=== PATIENT | female | born 1935 | race Hispanic/Latino ===

== ENCOUNTER 2017-02-07 11:25 | Outpatient (CLI) | payer MEDICARE, OTHER | END 2017-02-07 11:26 | disposition home or self-care (01) | LOC: MWLC RAD 11:25 | PROVIDERS: ATTEND Internal Medicine Geriatric Medicine | DX: Z53.9 Procedure and treatment not carried out, unspecified reason (principal) ==

== ENCOUNTER 2017-08-08 15:40 | Emergency (ER) | payer MEDICARE ==
[2017-08-08 16:34] LABS: #Basophils 0.1 thou/uL (0.0-0.2); #Eosinphils 0.3 thou/uL (0.0-0.7); #Monocytes 0.6 thou/uL (0.11-0.59); #Neutrophils 4.3 thou/uL (1.40-6.50); %Basophils 1.1 % (0.0-1.0); %Monocytes 8.5 % (0.0-10.0); %Neutrophils 59.3 % (42.0-75.0); Hemoglobin 11.6 g/dL (12.0-16.0); Mean Corpuscular HGB CONC 33.8 g/dL (32.0-36.0); Mean Corpuscular Hemoglobin 32.3 pg (27.0-31.0); Mean Corpuscular Volume 95.7 fl (81.0-99.0); Mean Platelet Volume 8.9 fL (7.4-10.4); Platelet Count 140 thou/uL (130-400); RBC Distribution Width 10.9 % (11.5-14.5); Red Blood Cell (RBC) Count 3.61 mill/uL (4.20-5.40); White Blood Cell (WBC) Count 7.3 thou/uL (4.8-10.8)
[2017-08-08 16:51] LABS: ALT (SGPT) 31 U/L (8-55); AST (SGOT) 23 U/L (5-34); Alkaline Phosphatase 123 U/L (40-150); Anion Gap 16 mmol/L (10-20); BUN (Urea Nitrogen) 30 mg/dL (9.8-20.1); Bilirubin, Total 0.6 mg/dL (0.2-1.2); Calc. Creatinine Clearance 0 mL/min (70-130); Calcium 9.6 mg/dL (7.8-10.44); Carbon Dioxide 25 mmol/L (23-31); Chloride 102 mmol/L (98-107); Estimated GFR-MDRD 29; Globulin 3.5 g/dL (2.4-3.5); Glucose 270 mg/dL (83-110); Potassium 4.7 mmol/L (3.5-5.1); Protein, Total 7.5 g/dL (6.0-8.3); Sodium 138 mmol/L (136-145)
[2017-08-08 17:06] LABS: Bilirubin Negative (Negative); Blood, Urine Trace (Negative); Clarity Cloudy (Clear); Glucose, Urine (Dipstick) 500 mg/dL (Negative); Leukocyte Large (Negative); Nitrite Positive (Negative); Protein, Urine (Dipstick) 30 mg/dL (Neg-Trace); Urobilinogen 0.2 mg/dL (0.2-1.0); pH, Urine 5.5 (5.0-9.0)
--- NOTE | 2017-08-08 17:11 | RAD ---
PA CHEST AND RIGHT RIB SERIES: 08/08/17 HISTORY: Trauma. Right chest injury, right chest pain. FINDINGS/IMPRESSION: There are changes of median sternotomy. The heart size is normal. The aorta is tortuous. The lungs ar e well expanded without confluent areas of consolidation, pneumothoraces or pleural effusions. No rig ht sided rib fracture is seen. POS: [facility]
[2017-08-08 17:15] LABS: Bacteria/HPF 4+ HPF (None Seen); RBC/HPF 0-3 HPF (0-3); Squamous Epithelial 0-3 HPF (0-3)
--- NOTE | 2017-08-08 17:27 | CT ---
CT OF THE BRAIN WITHOUT IV CONTRAST: 08/08/17 INDICATION: History of dizziness; patient had history of dysuria on Friday accompanied by dizziness for the pa st 1.5 weeks. Patient reports that she feels like she is spinning. She also has a history of prior UT Is. COMPARISON: Prior CT of the brain dated 11/02/16. FINDINGS: There is moderate chronic small vessel white matter ischemic change that appears stable to the prior exam. There is a remote appearing lacunar infarct involving the right caudate head. Septum pellucidum and third ventricle are midline. Skull and extracranial soft tissues appear within normal limits. Ma stoid air cells appear clear. There are stable chronic appearing calcifications within the right orbi t. IMPRESSION: No acute intracranial abnormality. 1. POS: [facility]
== END 2017-08-08 17:38 | disposition home or self-care (01) ==
LOC: SCSER 15:40
DX: N30.00 Acute cystitis without hematuria (principal); H81.10 Benign paroxysmal vertigo, unspecified ear; I25.10 Atherosclerotic heart disease of native coronary artery without angina pectoris; E03.9 Hypothyroidism, unspecified; K21.9 Gastro-esophageal reflux disease without esophagitis; E78.5 Hyperlipidemia, unspecified; F03.90 Unspecified dementia, unspecified severity, without behavioral disturbance, psychotic disturbance, mood disturbance, and anxiety; I12.9 Hypertensive chronic kidney disease with stage 1 through stage 4 chronic kidney disease, or unspecified chronic kidney disease; E11.22 Type 2 diabetes mellitus with diabetic chronic kidney disease; N18.3 Chronic kidney disease, stage 3 (moderate); F41.9 Anxiety disorder, unspecified; F32.9 Major depressive disorder, single episode, unspecified; Z79.899 Other long term (current) drug therapy; Z79.82 Long term (current) use of aspirin
CPT/HCPCS: 36415; 70450; 80053; 81003; 81015; 85025; 87077; 87086; 87186

== ENCOUNTER 2017-10-28 14:37 | Outpatient (CLI) | payer MEDICARE | END 2017-10-28 14:38 | disposition home or self-care (01) | LOC: BICULT 14:37 | PROVIDERS: ATTEND Internal Medicine Geriatric Medicine | DX: N39.0 Urinary tract infection, site not specified (principal); N18.9 Chronic kidney disease, unspecified | CPT/HCPCS: 76770 ==

== ENCOUNTER 2018-02-14 00:01 | Emergency (ER) | payer MEDICARE ==
[2018-02-14] MEDS ORDERED: Lidocaine 1% w/Epinephrine 1:100K 20 ML VIAL ONE (00:52)
[2018-02-14] MEDS ORDERED: Bacitracin Zinc 1 Packet ONE (01:08)
[2018-02-14] MEDS ORDERED: Acetaminophen 500 MG TAB ONE (01:29)
--- NOTE | 2018-02-14 09:12 | RAD ---
RIGHT KNEE 4 VIEWS: HISTORY: Injury, right knee pain. FINDINGS: No acute fracture or dislocation is identified. There is fullness in the suprapatellar pouch, suspic ious for joint effusion. Vascular calcifications are present. POS: [facility]
--- NOTE | 2018-02-14 09:24 | CT ---
PRELIMINARY REPORT/[facility]ERGENT[facility] AFTER-HOURS PROCEDURE CT Head Without Intravenous Contrast EXAM DATE/TIME: 02/14/2018 12:36 AM CLINICAL HISTORY: 82 years old, female; Injury or trauma; Fall; Injury details: Mechanical fall while walking. Family a nd patient deny loc. Family notes bleeding to head. TECHNIQUE: Axial computed tomography images of the head/brain without intravenous contrast. COMPARISON: No prior studies available for comparison at time of interpretation. FINDINGS: Brain: Volume loss and chronic small vessel ischemic change. Old lacunar infarction(s). No brain estrella a. No intracranial hemorrhage. Ventricles: Normal. No ventriculomegaly. Bones/joints: Normal. No acute fracture. Sinuses: Normal as visualized. No acute sinusitis. Mastoid air cells: Normal as visualized. No mastoid effusion. Orbits: Right ocular homogeneous hyperdensity may signify postoperative change or prosthesis or may s ignify intraocular hemorrhage, incompletely visualized. Soft tissues: Small right parietal scalp hematoma. IMPRESSION: No acute brain findings. Thank you for allowing us to participate in the care of your patient. Dictated and Authenticated by: Moris Sam MD 02/14/2018 1:02 AM Central Time ([place] & [place]) FINAL REPORT CT BRAIN WITHOUT CONTRAST: I agree with the preliminary report given by Dr. Moris Sam of [facility] [employer] [facility]. Comparison is made with arley dangelo of 08/08/17. POS: [facility]
--- NOTE | 2018-02-14 09:26 | CT ---
PRELIMINARY REPORT/[facility]/EMERGENTY AFTER-HOURS PROCEDURE CT Cervical Spine Without Intravenous Contrast EXAM DATE/TIME: 02/14/2018 12:38 AM CLINICAL HISTORY: 82 years old, female; Injury or trauma; Fall; Initial encounter; Blunt trauma; Injury details: Mechan ical fall while walking. Family and patient deny loc. Family notes bleeding to head. TECHNIQUE: Axial computed tomography images of the cervical spine without intravenous contrast. Coronal and sagittal reformatted images were created and reviewed. COMPARISON: No relevant prior studies available. FINDINGS: Vertebrae: No acute fracture. Normal alignment. Discs/Spinal canal/Neural foramina: No spinal stenosis. No neural foraminal narrowing. Soft tissues: Unremarkable. Lung apices: Normal. IMPRESSION: No acute findings. Thank you for allowing us to participate in the care of your patient. Dictated and Authenticated by: Moris Sam MD 02/14/2018 1:04 AM Central Time ([place] & [place]) FINAL REPORT CT CERVICAL SPINE WITHOUT CONTRAST: I agree with the preliminary report given by Dr. Moris Sam of [facility]. Degenerative changes are stable since previous exam of 11/02/16. POS: [facility]
== END 2018-02-14 01:34 | disposition home or self-care (01) ==
LOC: SCSER 00:01
DX: S01.01XA Laceration without foreign body of scalp, initial encounter (principal); S50.01XA Contusion of right elbow, initial encounter; S80.01XA Contusion of right knee, initial encounter; E03.9 Hypothyroidism, unspecified; I25.10 Atherosclerotic heart disease of native coronary artery without angina pectoris; K21.9 Gastro-esophageal reflux disease without esophagitis; I12.9 Hypertensive chronic kidney disease with stage 1 through stage 4 chronic kidney disease, or unspecified chronic kidney disease; N18.3 Chronic kidney disease, stage 3 (moderate); E11.22 Type 2 diabetes mellitus with diabetic chronic kidney disease; F41.9 Anxiety disorder, unspecified; F32.9 Major depressive disorder, single episode, unspecified; W17.89XA Other fall from one level to another, initial encounter
CPT/HCPCS: 12001; 36416; 70450; 72125; J2001

== ENCOUNTER 2018-06-27 21:45 | Observation (INO) | payer MEDICARE ==
[2018-06-27] MEDS ORDERED: Nitroglycerin 2% Ointment 1 INCH/1 GM Packet ONE (22:07)
[2018-06-27] MEDS ORDERED: Nitroglycerin 0.4 MG TAB (25 Tab Bottle) ONE (22:07)
[2018-06-27] MEDS ORDERED: cefTRIAXone\\ROCEPHIN 1 GM VIAL ONE (22:52)
[2018-06-27] MEDS ORDERED: Sodium Chloride 0.9% 100 ML ONE (22:52)
[2018-06-27 23:02] LABS: ALT (SGPT) 48 U/L (8-55); AST (SGOT) 47 U/L (5-34); Albumin 3.9 g/dL (3.4-4.8); Alkaline Phosphatase 133 U/L (40-150); Anion Gap 14 mmol/L (10-20); BUN (Urea Nitrogen) 32 mg/dL (9.8-20.1); Bilirubin, Total 0.3 mg/dL (0.2-1.2); CK (CPK) 68 U/L (29-168); Calc. Creatinine Clearance 0 mL/min (70-130); Calcium 9.5 mg/dL (7.8-10.44); Carbon Dioxide 24 mmol/L (23-31); Chloride 106 mmol/L (98-107); Estimated GFR-MDRD 38; Globulin 3.6 g/dL (2.4-3.5); Potassium 5.3 mmol/L (3.5-5.1); Protein, Total 7.5 g/dL (6.0-8.3); Sodium 139 mmol/L (136-145)
[2018-06-27 23:03] LABS: Glucose 179 mg/dL (83-110)
[2018-06-27 23:05] LABS: Bacteria/HPF 4+ HPF (None Seen); Bilirubin Negative (Negative); Blood, Urine Trace (Negative); Clarity Cloudy (Clear); Glucose, Urine (Dipstick) 100 mg/dL (Negative); Leukocyte Moderate (Negative); Nitrite Negative (Negative); Protein, Urine (Dipstick) Negative (Neg-Trace); RBC/HPF 0-3 HPF (0-3); Specific Gravity, Urine 1.015 (1.005-1.030); Squamous Epithelial 0-3 HPF (0-3); Transitional Epithelial 0-3 HPF (0-3); Urobilinogen 0.2 mg/dL (0.2-1.0)
[2018-06-27 23:06] LABS: Crystals/HPF None Seen HPF (Negative); Hyaline Casts/LPF NONE SEEN LPF (0-3 Hyaline)
[2018-06-27 23:08] LABS: #Basophils 0.1 thou/uL (0.0-0.2); #Eosinphils 0.3 thou/uL (0.0-0.7); #Lymphocytes 2.2 thou/uL (1.20-3.40); #Monocytes 0.6 thou/uL (0.11-0.59); #Neutrophils 3.8 thou/uL (1.40-6.50); %Basophils 1.4 % (0.0-1.0); %Eosinophils 4.4 % (0.0-10.0); %Lymphocytes 31.2 % (21.0-51.0); %Monocytes 8.7 % (0.0-10.0); %Neutrophils 54.2 % (42.0-75.0); Mean Corpuscular Hemoglobin 31.6 pg (27.0-31.0); Mean Corpuscular Volume 95.7 fL (78.0-98.0); Platelet Count 130 thou/uL (130-400); RBC Distribution Width 11.5 % (11.5-14.5); Red Blood Cell (RBC) Count 3.49 mill/uL (4.20-5.40); White Blood Cell (WBC) Count 6.9 thou/uL (4.8-10.8)
[2018-06-27] MEDS ORDERED: hydrALAZINE 20 MG/ML VIAL ONE (23:27)
[2018-06-28] MEDS ORDERED: Acetaminophen 325 MG TAB PO PRN (02:03)
[2018-06-28 02:09] LABS: Troponin I Less than 0.010 ng/mL (< 0.028)
--- NOTE | 2018-06-28 04:50 | HP ---
CHIEF COMPLAINT: Hypertension and dysuria. HISTORY OF PRESENT ILLNESS: The patient is a very pleasant 83-year-old female with a history of hypothyroidism, hypertension, who presented to the hospital for dysuria and was found to have an elevated blood pressure. The patient's daughter in-law who patient lives with, stated that the patient has been acting strange for the past couple of days. Stated initially that she is having some burning when she urinates. At this time, the patient's grandson bought the patient some Azo over the counter and the patient stated that she was feeling well. However, according to the [id number], she has been acting a little odd and strange. At this time, her blood sugar was checked and it was in the 300s. The patient's blood sugars are never so high in the 300s. Also, the patient has been complaining of some headache on her backside. At this time, her blood pressure was checked. Her blood pressure was very high in the 200 systolic over 100 diastolic. At this time, the patient was brought into the hospital for further evaluation. The patient currently denies any headaches, any nausea, vomiting, any diarrhea, any chest pain or chest pressure. All the history is obtained from the patient's family. PAST MEDICAL HISTORY: The patient has a history of: 1. History of hypertension. 2. History of mild early stage dementia. 3. High cholesterol. 4. Hypothyroidism. 5. Diabetes. PAST SURGICAL HISTORY: She has had a CABG. She has also had some eye surgery and appendectomy. SOCIAL HISTORY: She denies any alcohol use, drug use, or smoking history. She is a full code. ALLERGIES: SHE IS ALLERGIC TO SULFA. MEDICATIONS: 1. Levemir 15 units subcu daily. 2. Levothyroxine 75 mcg daily. 3. Glipizide 10 mg daily. 4. Losartan 25 mg daily. 5. Omeprazole 20 mg daily. 6. Atorvastatin 40 mg daily. 7. Paroxetine 10 mg daily. 8. Latanoprost one drop daily. 9. Aspirin 81 mg daily. PHYSICAL EXAMINATION: VITAL SIGNS: Temperature of 98.8. She is 100% on room air, respirations 18, pulse 71, blood pressure initially was 220/100. GENERAL: She is awake, alert, and oriented x3. Does not appear in distress. HEENT: Normocephalic, atraumatic. No lymphadenopathy noted. CV: S1 and S2 present. No murmurs, rubs, or gallops. LUNGS: Clear to auscultation. No rhonchi or wheezes noted. ABDOMEN: Soft and nontender. Bowel sounds present x2. No hepatomegaly or splenomegaly noted. EXTREMITIES: No edema. Pedal pulses are present x2. NEUROVASCULAR: No focal deficits noted. SKIN: No cuts, lesions, or bruises noted. FAMILY HISTORY: The patient has no history of heart disease, but does have history of diabetes in the family. LABORATORY DATA: Laboratory results were as of the following, WBCs of 6.9, hemoglobin of 11.0, hematocrit of 33.4, platelets of 130. Chemistry; sodium of 139, potassium of 5.3, BUN of 32, creatinine 1.32, sugar of 179. Troponin x2 were negative. AST is mildly elevated at 47. The patient did have a UA, which indicated that she did have some moderate leukocytes and greater than 50 wbc's. ASSESSMENT AND PLAN: The patient is a very pleasant 83-year-old female who presents to the hospital with multiple complaints. 1. Hypertensive urgency. The patient's blood pressure in the ER was noted to be in the systolic 200s and she has been having some headaches. At this time, she was given some nitroglycerin and hydralazine and her blood pressure has been in the 114s/70s in the unit. We will continue her home medications for now and keep an eye on her blood pressure. 2. Urinary tract infection. The patient's previous cultures have shown Klebsiella oxytoca and also Escherichia coli. We will start the patient on some ceftriaxone and continue to monitor. I have requested the culture of the urine to be sent. 3. Diabetes. We will start the patient on her home medications and continue to monitor. 4. Deep vein thrombosis prophylaxis. We will put the patient on some subcu heparin. 5. Hyperlipidemia. We will continue her home medications. Job ID: [id number]
[2018-06-28 05:10] LABS: #Eosinphils 0.4 thou/uL (0.0-0.7); #Lymphocytes 2.1 thou/uL (1.20-3.40); #Monocytes 0.6 thou/uL (0.11-0.59); #Neutrophils 3.4 thou/uL (1.40-6.50); %Basophils 0.4 % (0.0-1.0); %Eosinophils 5.9 % (0.0-10.0); %Lymphocytes 32.8 % (21.0-51.0); %Monocytes 9.1 % (0.0-10.0); %Neutrophils 51.8 % (42.0-75.0); Hemoglobin 10.5 g/dL (12.0-16.0); Mean Corpuscular HGB CONC 33.7 g/dL (32.0-36.0); Mean Corpuscular Hemoglobin 33.1 pg (27.0-31.0); Mean Corpuscular Volume 98.1 fL (78.0-98.0); Mean Platelet Volume 8.7 fL (7.4-10.4); Platelet Count 134 thou/uL (130-400); RBC Distribution Width 12.1 % (11.5-14.5); Red Blood Cell (RBC) Count 3.18 mill/uL (4.20-5.40); White Blood Cell (WBC) Count 6.5 thou/uL (4.8-10.8)
[2018-06-28 05:21] LABS: Anion Gap 8 mmol/L (10-20); BUN (Urea Nitrogen) 27 mg/dL (9.8-20.1); Calc. Creatinine Clearance 0 mL/min (70-130); Calcium 8.5 mg/dL (7.8-10.44); Carbon Dioxide 25 mmol/L (23-31); Chloride 112 mmol/L (98-107); Estimated GFR-MDRD 48; Glucose 143 mg/dL (83-110); Potassium 4.3 mmol/L (3.5-5.1); Sodium 141 mmol/L (136-145)
[2018-06-28] MEDS: Levothyroxine Sodium 75 MCG TAB PO SCH (06:22)
[2018-06-28] MEDS: Losartan 25 MG TAB PO SCH (08:18)
[2018-06-28] MEDS: glipiZIDE 10 MG TAB PO SCH ×2 (08:18→20:33)
[2018-06-28] MEDS: Enoxaparin Sodium 40 MG/0.4 ML SYRINGE SC SCH (08:18)
--- NOTE | 2018-06-28 09:24 | CT ---
PRELIMINARY REPORT/[facility]/EMERGENT[facility] AFTER-HOURS PROCEDURE CT Head Without Contrast EXAM DATE/TIME: 06/28/2018 6:35 AM CLINICAL HISTORY: 83 years old, female; Pain; Headache; Headache not specified; Patient HX: F85, presents ESCALONA dizziness and hypertension TECHNIQUE: Axial computed tomography images of the head/brain without contrast. COMPARISON: No relevant prior studies available. CT report 02/14/18. FINDINGS: Brain: Atrophy and white matter hypodensities compatible with chronic microvascular ischemic change. No hemorrhage Ventricles: Unremarkable. Bones/joints: No acute fracture. Sinuses: Unremarkable. Mastoid air cells: Unremarkable. Orbits: Hyperdense right globe, previously described. Soft tissues: Unremarkable. IMPRESSION: No evidence of acute intracranial abnormality. Thank you for allowing us to participate in the care of your patient. Dictated and Authenticated by: Uriel Jimenez MD 06/28/2018 7:57 AM Central Time ([place] & [place]) FINAL REPORT CT BRAIN WITHOUT CONTRAST: Date: 06/28/18 FINDINGS/IMPRESSION: I agree with the preliminary report given by Ol[facility]. Comparison made with exam of 02/10/18. Exam is stable. No CT evidence of acute intracranial process i s seen. POS: [facility]
[2018-06-28] MEDS ORDERED: Dextrose 50% Abboject 50 ML SYRINGE SLOW IVP PRN (13:05)
[2018-06-28] MEDS ORDERED: Insulin Regular 300 UNITS/3 ML VIAL SC PRN (13:05)
[2018-06-28] MEDS ORDERED: Dextrose 5% in Water 1,000 ML IV PRN (13:05)
--- NOTE | 2018-06-28 13:08 | PDOC.EVN ---
Event Note - Event Note Event Note: BP better controlled now. ESCALONA responded to BP control and eating. Added SS insulin AC. Brain CT with no acute changes. Follow up on urine cx. DW Patient and family members in detail Please see H and P by Dr. Kaufman
[2018-06-28 19:46] VITALS: BMI 25.1
[2018-06-28] MEDS ORDERED: PARoxetine 20 MG TAB PO SCH (21:00)
[2018-06-28] MEDS ORDERED: Insulin Glargine 15 UNITS in Pre-Filled Syringe 1 EACH SC SCH (21:00)
[2018-06-28] MEDS ORDERED: Non-Formulary Item 1 EACH (Insulin Detemir [Levemir] 15 UNIT) SQ SCH (21:00)
[2018-06-28] MEDS ORDERED: Aspirin 81 mg Enteric Coated Tablet PO SCH (21:00)
[2018-06-28] MEDS ORDERED: Atorvastatin Calcium 40 MG TAB PO SCH (21:00)
[2018-06-28] MEDS ORDERED: cefTRIAXone\\ROCEPHIN 1 GM in Sodium Chloride 0.9% 100 ML IVPB SCH (21:00)
[2018-06-29] MEDS: Levothyroxine Sodium 75 MCG TAB PO SCH (03:59)
[2018-06-29] MEDS: glipiZIDE 10 MG TAB PO SCH (09:50)
[2018-06-29] MEDS: Enoxaparin Sodium 40 MG/0.4 ML SYRINGE SC SCH (09:50)
[2018-06-29] MEDS: Losartan 25 MG TAB PO SCH (09:50)
[2018-06-29 15:55] VITALS: BP 143/63; TEMP 98.5
== END 2018-06-29 17:28 | disposition home or self-care (01) ==
LOC: SCSER 21:45 → 2SW 22:53
PROVIDERS: ADMIT Internal Medicine; ATTEND Internal Medicine
DX: I16.0 Hypertensive urgency (principal); N39.0 Urinary tract infection, site not specified; B96.1 Klebsiella pneumoniae [K. pneumoniae] as the cause of diseases classified elsewhere; I10 Essential (primary) hypertension; F03.90 Unspecified dementia, unspecified severity, without behavioral disturbance, psychotic disturbance, mood disturbance, and anxiety; E78.00 Pure hypercholesterolemia, unspecified; E03.9 Hypothyroidism, unspecified; E11.9 Type 2 diabetes mellitus without complications; E78.5 Hyperlipidemia, unspecified; Z79.4 Long term (current) use of insulin; Z79.82 Long term (current) use of aspirin; Z79.899 Other long term (current) drug therapy; Z95.1 Presence of aortocoronary bypass graft; Z88.2 Allergy status to sulfonamides
CPT/HCPCS: 70450; 80048; 80053; 82550; 82962 ×2; 83880; 84484 ×3; 85025 ×2; 87077; 87086; 87186; 96365; 96366; 96372 ×2; 96375; 97116; 97139 ×2; 99285; G0378 ×2; G8978; G8979; G8980; 36415; 36416; 81003; 81015; J0360; J0696; J1650; J1815; J7050

== ENCOUNTER 2022-01-27 16:10 | Inpatient (IN) | payer MEDICARE ==
[2022-01-27 18:47] VITALS: BMI 24.0
[2022-01-27] MEDS ORDERED: Ondansetron ODT 4 MG TAB PO PRN (19:32)
[2022-01-27] MEDS ORDERED: Acetaminophen 325 MG TAB PO PRN (19:32)
[2022-01-27] MEDS ORDERED: Ondansetron PF 4 MG/2 ML Vial IVP PRN (19:32)
[2022-01-27] MEDS ORDERED: Acetaminophen 650 MG Suppository PR PRN (19:49)
[2022-01-27] MEDS ORDERED: Albuterol 200 PUFF (6.7GM INHALER) INH PRN (19:49)
[2022-01-27] MEDS ORDERED: Dextrose 5% in Water 1,000 ML IV PRN (19:49)
[2022-01-27] MEDS ORDERED: Benzonatate 100 MG CAP PO PRN (19:49)
[2022-01-27] MEDS ORDERED: Dextrose 50% Abboject 50 ML SYRINGE SLOW IVP PRN (19:49)
[2022-01-27 20:23] LABS: Troponin I 0.016 ng/mL (< 0.028)
[2022-01-27] MEDS ORDERED: Labetalol HCl 100 MG/20 ML VIAL SLOW IVP PRN (20:33)
[2022-01-27 20:43] LABS: Hemoglobin A1c 11.9 % (4.0-6.0)
[2022-01-27] MEDS: glipiZIDE 5 MG TAB PO SCH (21:32)
[2022-01-27] MEDS: PARoxetine 20 MG TAB PO SCH (21:33)
[2022-01-27] MEDS: Calcitriol 0.25 MCG CAP PO SCH (21:33)
[2022-01-27] MEDS: Aspirin 81 mg Enteric Coated Tablet PO SCH (21:33)
[2022-01-27] MEDS: Sodium Chloride 0.9% 1,000 ML IV SCH (21:34)
[2022-01-27] MEDS: Atorvastatin Calcium 40 MG TAB PO SCH (21:34)
[2022-01-27] MEDS: cefTRIAXone\\ROCEPHIN 1 GM in Sodium Chloride 0.9% 100 ML IVPB SCH (21:38)
[2022-01-27] MEDS: HumaLOG 300 UNITS/3 ML VIAL SC PRN (22:22)
[2022-01-27 23:27] LABS: Troponin I 0.017 ng/mL (< 0.028)
[2022-01-28] MEDS ORDERED: hydrALAZINE 20 MG/ML VIAL SLOW IVP PRN (03:48)
[2022-01-28] MEDS ORDERED: hydrALAZINE 20 MG/ML VIAL SLOW IVP SCH (03:49)
[2022-01-28 05:13] LABS: #Eosinphils 0.3 thou/uL (0.0-0.7); #Lymphocytes 2.6 thou/uL (1.20-3.40); #Monocytes 0.6 thou/uL (0.11-0.59); %Basophils 0.5 % (0.0-1.0); %Eosinophils 4.4 % (0.0-10.0); %Monocytes 7.4 % (0.0-10.0); %Neutrophils 53.7 % (42.0-75.0); Hemoglobin 10.8 g/dL (12.0-16.0); Mean Corpuscular HGB CONC 33.9 g/dL (32.0-36.0); Mean Corpuscular Hemoglobin 33.2 pg (27.0-31.0); Mean Platelet Volume 9.1 fL (7.4-10.4); Platelet Count 139 thou/uL (130-400); RBC Distribution Width 12.1 % (11.5-14.5); Red Blood Cell (RBC) Count 3.26 mill/uL (4.20-5.40); White Blood Cell (WBC) Count 7.5 thou/uL (4.8-10.8)
[2022-01-28 05:35] LABS: ALT (SGPT) 14 U/L (8-55); AST (SGOT) 22 U/L (5-34); Albumin 3.1 g/dL (3.4-4.8); Alkaline Phosphatase 104 U/L (40-110); Anion Gap 13 mmol/L (10-20); BUN (Urea Nitrogen) 24 mg/dL (9.8-20.1); Bilirubin, Total 0.5 mg/dL (0.2-1.2); Calc. Creatinine Clearance 30 mL/min (70-130); Calcium 8.7 mg/dL (7.8-10.44); Carbon Dioxide 24 mmol/L (23-31); Cardiac Risk 3.9 (Less than 4.5); Chloride 107 mmol/L (98-107); Cholesterol 157 mg/dl (< 200 Desired); Estimated GFR 41; Globulin 3.1 g/dL (2.4-3.5); Glucose 142 mg/dL (83-110); HDL Cholesterol 40 mg/dL (>60 Neg Risk); LDL Cholesterol, Calculated 81 mg/dL; Potassium 3.9 mmol/L (3.5-5.1); Protein, Total 6.2 g/dL (5.8-8.1); Sodium 140 mmol/L (136-145); Triglycerides 181 mg/dL (Less than 150)
[2022-01-28] MEDS: Levothyroxine Sodium 75 MCG TAB PO SCH (06:17)
[2022-01-28] MEDS ORDERED: Insulin Glargine 30 UNITS/0.3 ML VIAL SC SCH (09:00)
[2022-01-28] MEDS ORDERED: Amlodipine 5 MG TAB PO SCH (09:00)
[2022-01-28] MEDS ORDERED: CRANBERRY 500 MG PO SCH (09:00)
[2022-01-28] MEDS: Aspirin Chewable 81 MG TAB PO SCH (10:14)
[2022-01-28] MEDS: Multivit, Therapeutic 1 TAB PO SCH (10:14)
[2022-01-28] MEDS: Enoxaparin Sodium 30 MG/0.3 ML SYRINGE SC SCH (10:15)
[2022-01-28] MEDS: Losartan 25 MG TAB PO SCH (10:15)
[2022-01-28] MEDS: glipiZIDE 10 MG TAB PO SCH (10:15)
[2022-01-28] MEDS: Sodium Chloride 0.9% 1,000 ML IV SCH (10:17)
[2022-01-28] MEDS: HumaLOG 300 UNITS/3 ML VIAL SC PRN ×2 (12:14→17:23)
[2022-01-28] MEDS: cefTRIAXone\\ROCEPHIN 1 GM in Sodium Chloride 0.9% 100 ML IVPB SCH (22:07)
[2022-01-28] MEDS: Aspirin 81 mg Enteric Coated Tablet PO SCH (22:09)
[2022-01-28] MEDS: glipiZIDE 5 MG TAB PO SCH (22:09)
[2022-01-28] MEDS: Calcitriol 0.25 MCG CAP PO SCH (22:09)
[2022-01-28] MEDS: Atorvastatin Calcium 40 MG TAB PO SCH (22:09)
[2022-01-28] MEDS: Insulin Glargine 30 UNITS/0.3 ML VIAL SC SCH (22:09)
[2022-01-28] MEDS: PARoxetine 20 MG TAB PO SCH (22:10)
[2022-01-29] MEDS: Latanoprost 0.005% Ophth Soln 2.5 ml Bottle L EYE SCH ×2 (02:31→20:49)
[2022-01-29] MEDS: Levothyroxine Sodium 75 MCG TAB PO SCH (06:48)
[2022-01-29] MEDS: glipiZIDE 10 MG TAB PO SCH (09:00)
[2022-01-29] MEDS: Amlodipine 10 MG TAB PO SCH (09:00)
[2022-01-29] MEDS: Insulin Glargine 30 UNITS/0.3 ML VIAL SC SCH ×2 (09:00→20:46)
[2022-01-29] MEDS: Multivit, Therapeutic 1 TAB PO SCH (09:00)
[2022-01-29] MEDS: Losartan 25 MG TAB PO SCH (09:00)
[2022-01-29] MEDS: Aspirin Chewable 81 MG TAB PO SCH (09:00)
[2022-01-29] MEDS: Enoxaparin Sodium 30 MG/0.3 ML SYRINGE SC SCH (09:01)
[2022-01-29] MEDS ORDERED: Nitroglycerin 0.4 MG TAB (25 Tab Bottle) ONE (10:43)
[2022-01-29] MEDS: HumaLOG 300 UNITS/3 ML VIAL SC PRN ×3 (10:48→21:54)
[2022-01-29 14:40] LABS: Anion Gap 15 mmol/L (10-20); BUN (Urea Nitrogen) 18 mg/dL (9.8-20.1); Calc. Creatinine Clearance 28 mL/min (70-130); Calcium 8.6 mg/dL (7.8-10.44); Carbon Dioxide 23 mmol/L (23-31); Chloride 102 mmol/L (98-107); Estimated GFR 37; Glucose 326 mg/dL (83-110); Potassium 3.5 mmol/L (3.5-5.1); Sodium 136 mmol/L (136-145)
[2022-01-29] MEDS: Aspirin 81 mg Enteric Coated Tablet PO SCH (20:42)
[2022-01-29] MEDS: Atorvastatin Calcium 40 MG TAB PO SCH (20:42)
[2022-01-29] MEDS: Calcitriol 0.25 MCG CAP PO SCH (20:42)
[2022-01-29] MEDS: PARoxetine 20 MG TAB PO SCH (20:43)
[2022-01-29] MEDS: glipiZIDE 5 MG TAB PO SCH (20:46)
[2022-01-29] MEDS: cefTRIAXone\\ROCEPHIN 1 GM in Sodium Chloride 0.9% 100 ML IVPB SCH (20:48)
[2022-01-30] MEDS: Levothyroxine Sodium 75 MCG TAB PO SCH (06:07)
[2022-01-30 08:11] VITALS: BP 126/54; TEMP 98.1
[2022-01-30] MEDS: Multivit, Therapeutic 1 TAB PO SCH (08:27)
[2022-01-30] MEDS: Insulin Glargine 30 UNITS/0.3 ML VIAL SC SCH (08:28)
[2022-01-30] MEDS: Amlodipine 10 MG TAB PO SCH (08:28)
[2022-01-30] MEDS: Aspirin Chewable 81 MG TAB PO SCH (08:28)
[2022-01-30] MEDS: Enoxaparin Sodium 30 MG/0.3 ML SYRINGE SC SCH (08:29)
[2022-01-30] MEDS: Losartan 25 MG TAB PO SCH (08:29)
[2022-01-30] MEDS: glipiZIDE 10 MG TAB PO SCH (08:29)
== END 2022-01-30 12:38 | disposition home or self-care (01) | DRG 179 ==
LOC: 2SW 16:10 → INTOOBSV 16:10 → OBSVTOIN 19:58 → 2SW 01-28 22:55
PROVIDERS: ADMIT Family Medicine; ATTEND Internal Medicine
PROC: 8E0ZXY6 Isolation (ICD-10-PCS; principal; 2022-01-27)
DX: U07.1 COVID-19 (principal); R07.9 Chest pain, unspecified; R31.9 Hematuria, unspecified; E11.22 Type 2 diabetes mellitus with diabetic chronic kidney disease; N18.30 Chronic kidney disease, stage 3 unspecified; F03.90 Unspecified dementia, unspecified severity, without behavioral disturbance, psychotic disturbance, mood disturbance, and anxiety; I12.9 Hypertensive chronic kidney disease with stage 1 through stage 4 chronic kidney disease, or unspecified chronic kidney disease; E78.5 Hyperlipidemia, unspecified; D63.1 Anemia in chronic kidney disease; I25.10 Atherosclerotic heart disease of native coronary artery without angina pectoris; E03.9 Hypothyroidism, unspecified; H40.9 Unspecified glaucoma; H54.61 Unqualified visual loss, right eye, normal vision left eye; K21.9 Gastro-esophageal reflux disease without esophagitis; I45.10 Unspecified right bundle-branch block; Z88.2 Allergy status to sulfonamides; Z95.1 Presence of aortocoronary bypass graft; Z79.890 Hormone replacement therapy; Z79.82 Long term (current) use of aspirin; Z79.4 Long term (current) use of insulin; Z79.84 Long term (current) use of oral hypoglycemic drugs; Z79.899 Other long term (current) drug therapy; Z90.49 Acquired absence of other specified parts of digestive tract
CPT/HCPCS: 36415; 36416; 80048; 80053; 80061; 83036; 85025; 85379; 86140; 87086; J0360; J0696; J1650; J1815; J3490; J7050

== ENCOUNTER 2022-05-24 00:23 | Inpatient (IN) | payer MEDICARE, SELFPAY ==
[2022-05-24] MEDS ORDERED: hydrALAZINE 20 MG/ML VIAL SLOW IVP PRN (01:28)
[2022-05-24] MEDS ORDERED: Labetalol HCl 100 MG/20 ML VIAL SLOW IVP PRN (01:28)
[2022-05-24] MEDS ORDERED: Ondansetron PF 4 MG/2 ML Vial IVP PRN (01:34)
[2022-05-24] MEDS ORDERED: Dextrose 50% Abboject 50 ML SYRINGE SLOW IVP PRN (01:41)
[2022-05-24] MEDS ORDERED: Dextrose 5% in Water 1,000 ML IV PRN (01:41)
[2022-05-24] MEDS ORDERED: niCARdipine 25 MG/10 ML VIAL ONE (01:44)
[2022-05-24] MEDS ORDERED: niCARdipine 25 MG in Sodium Chloride 0.9% 250 ML 250 ML IVPB SCH (02:00)
[2022-05-24 05:28] LABS: #Eosinphils 0.2 thou/uL (0.0-0.7); #Lymphocytes 1.6 thou/uL (1.20-3.40); #Monocytes 0.7 thou/uL (0.11-0.59); #Neutrophils 5.1 thou/uL (1.40-6.50); %Basophils 0.4 % (0.0-1.0); %Eosinophils 2.9 % (0.0-10.0); %Lymphocytes 20.9 % (21.0-51.0); %Monocytes 8.5 % (0.0-10.0); %Neutrophils 67.3 % (42.0-75.0); Hemoglobin 11.6 g/dL (12.0-16.0); Mean Corpuscular HGB CONC 32.6 g/dL (32.0-36.0); Mean Corpuscular Hemoglobin 31.8 pg (27.0-31.0); Mean Corpuscular Volume 97.4 fl (78.0-98.0); Mean Platelet Volume 8.7 fL (7.4-10.4); Platelet Count 167 10x3/uL (130-400); RBC Distribution Width 12.9 % (11.5-14.5); Red Blood Cell (RBC) Count 3.66 mill/uL (4.20-5.40); White Blood Cell (WBC) Count 7.6 10x3/uL (4.8-10.8)
[2022-05-24 05:54] LABS: Phosphorus 3.2 mg/dL (2.3-4.7)
[2022-05-24 05:55] LABS: Anion Gap 12 mmol/L (10-20); BUN (Urea Nitrogen) 22 mg/dL (9.8-20.1); Calc. Creatinine Clearance 0 mL/min (70-130); Calcium 9.3 mg/dL (7.8-10.44); Carbon Dioxide 24 mmol/L (23-31); Chloride 104 mmol/L (98-107); Estimated GFR 35; Glucose 319 mg/dL (83-110); Potassium 4.6 mmol/L (3.5-5.1); Sodium 135 mmol/L (136-145)
[2022-05-24] MEDS ORDERED: Acetaminophen 500 MG TAB ONE (07:11)
[2022-05-24] MEDS ORDERED: Amlodipine 5 MG TAB ONE (07:11)
[2022-05-24] MEDS: Acetaminophen 500 MG TAB PO SCH ×3 (07:32→15:45)
[2022-05-24] MEDS: Amlodipine 5 MG TAB PO SCH (07:33)
[2022-05-24] MEDS ORDERED: hydrALAZINE 20 MG/ML VIAL ONE (08:38)
[2022-05-24] MEDS ORDERED: TETANUS, DIPHTHERIA TOX,ADULT (TDVAX) 0.5 ML VIAL IM ONE (09:00)
[2022-05-24] MEDS ORDERED: Famotidine 20 MG TAB PO SCH (09:00)
[2022-05-24] MEDS: Losartan 25 MG TAB PO SCH (09:10)
[2022-05-24] MEDS: Polyethylene Glycol 3350 17 GM Packet PO SCH (09:11)
[2022-05-24] MEDS: Levothyroxine Sodium 75 MCG TAB PO SCH (09:11)
[2022-05-24] MEDS: Senokot S 8.6-50 MG TAB PO SCH ×2 (09:11→21:19)
[2022-05-24] MEDS: HumaLOG 300 UNITS/3 ML VIAL SC PRN ×2 (16:00→21:33)
[2022-05-25] MEDS: Acetaminophen 500 MG TAB PO SCH ×3 (02:38→13:00)
[2022-05-25 05:38] LABS: #Eosinphils 0.3 thou/uL (0.0-0.7); #Lymphocytes 2.2 thou/uL (1.20-3.40); #Monocytes 0.5 thou/uL (0.11-0.59); #Neutrophils 3.8 thou/uL (1.40-6.50); %Basophils 0.4 % (0.0-1.0); %Eosinophils 4.4 % (0.0-10.0); %Lymphocytes 31.9 % (21.0-51.0); %Neutrophils 55.3 % (42.0-75.0); Hemoglobin 10.1 g/dL (12.0-16.0); Mean Corpuscular HGB CONC 31.3 g/dL (32.0-36.0); Mean Corpuscular Hemoglobin 30.2 pg (27.0-31.0); Mean Corpuscular Volume 96.6 fl (78.0-98.0); Mean Platelet Volume 8.7 fL (7.4-10.4); Platelet Count 151 10x3/uL (130-400); RBC Distribution Width 12.8 % (11.5-14.5); Red Blood Cell (RBC) Count 3.35 mill/uL (4.20-5.40); White Blood Cell (WBC) Count 6.8 10x3/uL (4.8-10.8)
[2022-05-25] MEDS: Levothyroxine Sodium 75 MCG TAB PO SCH (06:05)
[2022-05-25 06:06] LABS: Anion Gap 11 mmol/L (10-20); BUN (Urea Nitrogen) 30 mg/dL (9.8-20.1); Calc. Creatinine Clearance 0 mL/min (70-130); Calcium 8.7 mg/dL (7.8-10.44); Carbon Dioxide 25 mmol/L (23-31); Chloride 103 mmol/L (98-107); Estimated GFR 32; Glucose 348 mg/dL (83-110); Magnesium 2.1 mg/dL (1.6-2.6); Phosphorus 3.8 mg/dL (2.3-4.7); Sodium 134 mmol/L (136-145)
[2022-05-25] MEDS: HumaLOG 300 UNITS/3 ML VIAL SC PRN ×2 (06:07→13:01)
[2022-05-25] MEDS ORDERED: glipiZIDE 10 MG TAB PO SCH (08:45)
[2022-05-25] MEDS ORDERED: Insulin Glargine 30 UNITS/0.3 ML VIAL SC SCH (09:00)
[2022-05-25] MEDS: Senokot S 8.6-50 MG TAB PO SCH (09:15)
[2022-05-25] MEDS: Losartan 25 MG TAB PO SCH (09:15)
[2022-05-25] MEDS: Amlodipine 5 MG TAB PO SCH (09:16)
[2022-05-25] MEDS: Polyethylene Glycol 3350 17 GM Packet PO SCH (09:16)
[2022-05-25 17:07] VITALS: BP 145/76; TEMP 98
[2022-05-25] MEDS ORDERED: Latanoprost 0.005% Ophth Soln 2.5 ml Bottle EA EYE SCH (21:00)
[2022-05-25] MEDS ORDERED: Atorvastatin Calcium 40 MG TAB PO SCH (21:00)
[2022-05-25] MEDS ORDERED: PARoxetine 20 MG TAB PO SCH (21:00)
[2022-05-25] MEDS ORDERED: glipiZIDE 5 MG TAB PO SCH (21:00)
[2022-05-25] MEDS ORDERED: Calcitriol 0.25 MCG CAP PO SCH (21:00)
[2022-05-26] MEDS ORDERED: glipiZIDE 10 MG TAB PO SCH (07:30)
== END 2022-05-25 15:25 | disposition home or self-care (01) | DRG 86 ==
LOC: ERS 00:23 → ERHOLD 01:34 → SURG B 13:10
PROVIDERS: ADMIT Surgery; ATTEND Surgery
DX: S06.5X0A Traumatic subdural hemorrhage without loss of consciousness, initial encounter (principal); I16.1 Hypertensive emergency; N17.9 Acute kidney failure, unspecified; I25.10 Atherosclerotic heart disease of native coronary artery without angina pectoris; E03.9 Hypothyroidism, unspecified; K21.9 Gastro-esophageal reflux disease without esophagitis; E78.00 Pure hypercholesterolemia, unspecified; F03.90 Unspecified dementia, unspecified severity, without behavioral disturbance, psychotic disturbance, mood disturbance, and anxiety; N18.30 Chronic kidney disease, stage 3 unspecified; E11.22 Type 2 diabetes mellitus with diabetic chronic kidney disease; F41.9 Anxiety disorder, unspecified; F32.A Depression, unspecified; I12.9 Hypertensive chronic kidney disease with stage 1 through stage 4 chronic kidney disease, or unspecified chronic kidney disease; W18.30XA Fall on same level, unspecified, initial encounter; Z20.822 Contact with and (suspected) exposure to COVID-19; Z95.1 Presence of aortocoronary bypass graft; Z90.49 Acquired absence of other specified parts of digestive tract; Z98.890 Other specified postprocedural states; Z88.2 Allergy status to sulfonamides; Z79.82 Long term (current) use of aspirin; Z79.84 Long term (current) use of oral hypoglycemic drugs; Z79.899 Other long term (current) drug therapy
CPT/HCPCS: 36415; 36416; 70450; 80048; 83735; 84100; 84443; 85025; 90714; 96365; 96366; J0360; J1815; U0003; U0005